=== PATIENT | female | born 1960 | race Caucasian/White ===

== ENCOUNTER 2019-01-07 19:44 | Emergency (ER) | payer MEDICAID ==
[~2019-01-07] VITALS: Ht 160 cm; Wt 56.7 kg
[2019-01-07 20:25] VITALS: Ht 160 cm; Wt 56.7 kg
[2019-01-07] MEDS ORDERED: IBUP-1542 PO (23:15)
--- NOTE | 2019-01-07 23:25 | ERD ---
ER Documentation Chief Complaint Chief Complaint top of scalp laceration, states fell down stairs around 6 pm. no ko HPI 58-year-old female with no reported past medical surgical history presents status post fall while at work. Patient states she tripped and fell down a flight of steps of approximately 7 steps sustaining a laceration to the top of her scalp. She otherwise denies loss of consciousness, persistent dizziness or headache, blurry vision, difficulty hearing, upper or lower extremity pain, numbness, weakness, back pain, hip or pelvic pain, nausea, vomiting, diarrhea, abdominal pain, any other bony injuries or pain. States she was able to get up on her own power. Family at bedside states patient has been appropriate with normal speech and behavior, normal gait. Denies any concerning symptoms such as chest pain, difficulty breathing, seizure-like activity prior to episode. She otherwise reports relatively good health and is otherwise without complaint. ROS All systems reviewed and are negative except as per history of present illness. Medications Home Meds Active Scripts Ibuprofen* (Motrin*) 600 Mg Tab, 600 MG PO Q6, #30 TAB Prov:MARLA CHAUHAN PA-C 01/07/19 Allergies Allergies: Coded Allergies: No Known Drug Allergies (Verified Allergy, Unknown, 01/07/19) PMhx/Soc Medical and Surgical Hx: pt denies Medical Hx, pt denies Surgical Hx Hx Alcohol Use: No Hx Substance Use: No Hx Tobacco Use: No Smoking Status: Never smoker FmHx Family History: No diabetes, No coronary disease, No other Physical Exam Vitals Vital Signs Date Temp Pulse Resp B/P (MAP) Pulse Ox O2 O2 Flow FiO2 Time Delivery Rate 01/07/19 97.7 88 18 165/85 98 20:25 (111) Physical Exam I have reviewed the triage vital signs. Const: Well nourished, well developed, appears stated age Eyes: PERRL, no conjunctival injection HENT: NCAT, Neck supple without meningismus, scalp with centimeters laceration, nonbleeding CV: RRR, Warm, well-perfused extremities RESP: CTAB, Unlabored respiratory effort GI: soft, non-tender, non-distended, no masses MSK: No gross deformities appreciated, 5 out of 5 strength upper extremities bilaterally, no tenderness to palpation over spinal processes, bilateral lower extremities without signs of injury, upper extremities without signs of injury Back Exam: Skin: No bruising or rash Compartments: Soft Motor: Normal flexion and extension of bilateral hip/knee/ankle/foot Sensation: Intact to light touch throughout Bones: No midline TTP Skin: Warm, dry. No rashes Neuro: grossly non focal Neuro: M/S: Alert and oriented Face: EOMI, face and pharynx with normal sensation and function Motor: Normal strength throughout Sensation: Normal sensation throughout Speech: Normal Cerebel: Normal coordination Normal gait Normal finger to nose DTR: 2+ and symmetric upper/lower extremities Psych: Appropriate mood and affect. Results 24 hrs Current Medications Medications Dose Sig/[place] Start Time Status Last (Trade) Ordered Route PRN Stop Time Admin Dose Reason Admin Ketorolac 30 mg ONCE STAT 01/07/19 DC Tromethamine IM 23:31 (Toradol) 01/07/19 23:33 1 tab ONCE ONCE 01/08/19 DC 01/08/19 Acetaminophen PO 00:00 00:08 / 01/08/19 00:01 Hydrocodone Bitart ([place] (5/325)) Procedures/MDM 58-year-old female presents status post trip and fall with head with noted scalp laceration. low suspicion at this time for ICH or significant C-spine injury. Patient with normal neurological exam without any concerning focal findings. Concussion care and precautions discussed. ED course: [place] applied to laceration after area cleaned and irrigated Laceration Repair by me: Anesthesia: NONE Location: Scalp Tendon/Joint/Nerves: No injury Foreign body: None detected after copious irrigation and exploration Technique: OSWALD Complexity: No subcutaneous sutures/mucosal repair/edge excision Post Closure Length: 2.5 cm Patient's bleeding was easily controlled in the department and there is no indication of anemia. No evidence of compartment syndrome, neurologic injury, vascular injury, open joint, tendon laceration, or foreign body. Patient is appropriate for outpatient follow up. 48 hour wound check. Scar minimization instructions given. After extensive discussion with patient and game author regarding observation versus CT and risks and benefits of both, mutual decision making to observe and not pursue further workup at this time. Patient tolerating PO, continue to be at baseline and well appearing. As above, does not have signs of altered mental status or basilar skull fracture. Cautious return precautions discussed w/ full understanding. Prompt follow up with primary care physician discussed. Friend agreeing to bring patient back if any concern including if patient with recurrent vomiting or altered behavior. Patient tolerating PO, continue to be at baseline and well appearing. As above, does not have signs of altered mental status or basilar skull fracture. Cautious return precautions discussed w/ full understanding. Prompt follow up with primary care physician discussed. Friend agreeing to bring patient back if any concern including if patient with recurrent vomiting or altered behavior. DISPOSITION PLAN: We discussed follow up with the patient's primary care doctor within 24 to 48 hours. Patient counseled regarding my diagnostic impression and care plan. Prior to discharge all questions answered. Pt agrees with treatment plan and understands strict return precautions. Precautionary instructions provided including instructions to return to the ER if not improving or for any worsening or changing symptoms or concerns. Disclaimer: Inadvertent spelling and grammatical errors are likely due to EHR/dictation software use and do not reflect on the overall quality of patient care. Also, please note that the electronic time recorded on this note does not necessarily reflect the actual time of the patient encounter. Departure Diagnosis: Primary Impression: Laceration Condition: Stable Patient Instructions: Laceration, Scalp Referrals: [facility] YOU HAVE RECEIVED A MEDICAL SCREENING EXAM AND THE RESULTS INDICATE THAT YOU DO NOT HAVE A CONDITION THAT REQUIRES URGENT TREATMENT IN THE EMERGENCY DEPARTMENT. FURTHER EVALUATION AND TREATMENT OF YOUR CONDITION CAN WAIT UNTIL YOU ARE SEEN IN YOUR DOCTORS OFFICE WITHIN THE NEXT 1-2 DAYS. IT IS YOUR RESPONSIBILITY TO MAKE AN APPOINTMENT FOR FOLOW-UP CARE. IF YOU HAVE A PRIMARY DOCTOR --you should call your primary doctor and schedule an appointment IF YOU DO NOT HAVE A PRIMARY DOCTOR YOU CAN CALL OUR PHYSICIAN REFERRAL HOTLINE AT IF YOU CAN NOT AFFORD TO SEE A PHYSICIAN YOU CAN CHOSE FROM THE FOLLOWING [facility] CL[facility]ICS [facility] [address] [facility]. [facility] [address] [facility] [facility] [address] [facility] [address] [facility]. [facility] [address] [facility]. [facility]. [address] Additional Instructions: Call your primary care doctor TOMORROW for an appointment during the next 2-3 days.See the doctor sooner or return here if your condition worsens before your appointment time. MARLA CHAUHAN PA-C Jan 07, 2019 23:25
[2019-01-07] MEDS ORDERED: KETOROLAC 30 MG INJ IM STA (23:31)
[2019-01-08] MEDS ORDERED: HYDROCODONE/APAP (5/325) TAB PO ONE
[2019-01-08 00:33] VITALS: BP 145/72; PULSE 79; RESP 18
== END 2019-01-08 00:34 | disposition home or self-care (01) ==
LOC: FTE 19:44
DX: S01.01XA Laceration without foreign body of scalp, initial encounter (principal); W10.9XXA Fall (on) (from) unspecified stairs and steps, initial encounter; Y92.89 Other specified places as the place of occurrence of the external cause
CPT/HCPCS: 12001; Z7502; Z7610